=== PATIENT | male | born 1955 | race Caucasian/White ===

== ENCOUNTER → 2017-04-17 | Outpatient (CLI) | payer BC ==
[~2017-04-17] MED LIST: ALPR.5 PO; AMLO10 PO; AMLO5; AMLO5 PO; ASPI81CH PO; Aspir-Trin325 MG PO; CEPH500 PO; CIPDEXSU BOTHEARS; CIPDEXSU RIGHTEAR; CIPR500 PO; CYAN1000; DIAZ5 PO; FISH1000; GABA300 PO; GABA800 PO; GLYB5; GLYB5 PO; HYDACE10A PO; HYDACE10B PO; HYDACE5 PO; HYDCHL12.5; HYDCHL25 PO; IBUP600 PO; IBUP800 PO; ISOSORBIDE MONONITRA PO; LISI20; LISI20 PO; MAGNESIUM-VIT1 EACH PO; METF500; METF500 PO; METO100ER PO; METO50ER PO; NEBI10; OMEP20ER PO; OXYC10ER PO; OXYC10TA19; OXYC1TAB11 PO; OXYC5; OXYC5 PO; PIOG45 PO; POTA20PAC PO; PRAV20 PO; PREG75 PO; PYRI100; Plavix75 MG PO; SENN187 PO; TORSE20 PO; TRESIBA FL200 UNIT/1 SC; WARF7.5 PO; XARELTO20 MG PO; Zofran Odt4 MG SL
[2017-04-19 17:38] LABS: Methadone Metab. by GC/MS Not Detected (NOTDET)
== END ==
LOC: LAB EV 15:00
PROVIDERS: Physician Assistant
DX: G89.4 Chronic pain syndrome (principal)
CPT/HCPCS: G0480

== ENCOUNTER 2019-01-05 09:50 | Day surgery (SDC) | payer BC ==
[~2019-01-05] VITALS: Ht 190.5 cm; Wt 135.0 kg
[~2019-01-05 09:50] MED LIST changes: +AMIT25 PO; +Aspir 8181 MG PO; +CLOP75 PO; +DICMIS50EC PO; +Flonase 0.05% N16 GM; +PANT40 PO
[2019-01-05] MEDS ORDERED: Isosorbide Mono30 MG PO (15:39)
--- NOTE | 2019-01-05 15:45 | NUR ---
Pt given hard script for Ricardo, called into [facility] on [address]. Pt instructed to get labs drawn for kidney's on 01/07 orderin patients home folder. Pt instructed not to take viagra.
--- NOTE | 2019-01-05 15:49 | NUR ---
CAMILLA Luna RN site reviewed.
--- NOTE | 2019-01-05 17:05 | NUR ---
ASSUMED CARE OF PT. PT IS AWAKE, ALERT AND ORIENTED, PLEASENT AND COOPERTIVE. PT DENIES CHEST PAIN/PRESSURE, SOB OR NAUSEA. MONITOR SR 60'S, B/P 147/76, SPO2 95% RA. R RADIAL SITE, SOFT, NO SWELLING/HEMATOMA, TR BAND IN PLACE. PT UP TO BATHROOM WITHOUT PROBLEM, SITE UNCHANGED AFTER ACTIVITY.
--- NOTE | 2019-01-05 18:20 | NUR ---
PT DRESSED SELF WITH MIN ASSISTANCE. PT'S SITE REMAINS UNCHANGED, TR BAND REMOVED, CLOTH DOT AND WRIST IMMOBILIZER PLACED; IV REMOVED-CANNULA INTACT. PT RECEIVED DISCHARGE INSTRUCTIONS, MED LIST AND "AFTER CARE" INSTRUCTIONS; VERBALIZED GOOD UNDERSTANDING.
--- NOTE | 2019-01-05 18:25 | NUR ---
PT LEFT FACILITY WITH BROTHER VIA W/C, CONDITION STABLE.
== END 2019-01-05 18:25 | disposition home or self-care (01) ==
LOC: MHTC 09:50
PROC: 4A023N7 Measurement of Cardiac Sampling and Pressure, Left Heart, Percutaneous Approach (ICD-10-PCS; principal; 2019-01-05)
PROC: B2111ZZ Fluoroscopy of Multiple Coronary Arteries using Low Osmolar Contrast (ICD-10-PCS; principal; 2019-01-05)
DX: R94.39 Abnormal result of other cardiovascular function study (principal); I48.0 Paroxysmal atrial fibrillation; I25.10 Atherosclerotic heart disease of native coronary artery without angina pectoris; E78.5 Hyperlipidemia, unspecified; M54.5 Low back pain; I12.9 Hypertensive chronic kidney disease with stage 1 through stage 4 chronic kidney disease, or unspecified chronic kidney disease; E11.22 Type 2 diabetes mellitus with diabetic chronic kidney disease; N18.9 Chronic kidney disease, unspecified; E66.01 Morbid (severe) obesity due to excess calories; Z68.37 Body mass index [BMI] 37.0-37.9, adult; Z79.84 Long term (current) use of oral hypoglycemic drugs; Z79.82 Long term (current) use of aspirin; Z79.02 Long term (current) use of antithrombotics/antiplatelets; Z79.899 Other long term (current) drug therapy; Z87.891 Personal history of nicotine dependence; Z88.5 Allergy status to narcotic agent; Z95.5 Presence of coronary angioplasty implant and graft
CPT/HCPCS: 93458; 99152; 99153; C1769; C1894; J1644; J2250; J3010; J7030; Q9967

== ENCOUNTER 2020-06-26 15:41 | Emergency (ER) | payer MEDICARE ==
[~2020-06-26] VITALS: Ht 193 cm; Wt 142.9 kg
[~2020-06-26 15:41] MED LIST changes: +Isosorbide Mono30 MG PO
[2020-06-26 16:42] LABS: BASOPHILS ABSOLUTE AUTO 0.05 K/mm3 (0.00-0.23); BASOPHILS PERCENT AUTO 1 % (0-2); EOSINOPHILS ABSOLUTE AUTO 0.18 K/mm3 (0.00-0.68); EOSINOPHILS PERCENT AUTO 2 % (0-6); Hematocrit 42.6 % (37.0-53.0); Hemoglobin 13.4 g/dL (13.5-17.5); IMMATURE GRAN ABSOLUTE AUTO 0.03 K/mm3 (0.00-0.10); IMMATURE GRAN PERCENT AUTO 0 % (0-1); LYMPHOCYTES ABSOLUTE AUTO 1.47 K/mm3 (0.84-5.20); LYMPHOCYTES PERCENT AUTO 18 % (21-46); MONOCYTES ABSOLUTE AUTO 0.64 K/mm3 (0.16-1.47); MONOCYTES PERCENT AUTO 8 % (4-13); Mean Corpuscular HGB 27.2 pg (26.0-34.0); Mean Corpuscular HGB Conc 31.5 g/dL (31.5-36.5); Mean Corpuscular Volume 86 fL (80-100); Mean Platelet Volume 10.3 fL (9.1-12.4); NEUTROPHILS ABSOLUTE AUTO 5.91 K/mm3 (1.96-9.15); NEUTROPHILS PERCENT AUTO 71 % (41-73); Platelet Count 194 K/mm3 (150-400); RDW Coefficient Variation 15.5 % (11.7-14.2); Red Blood Cell Count 4.93 M/mm3 (4.30-5.90); White Blood Cell Count 8.28 K/mm3 (4.00-11.30)
[2020-06-26 17:04] LABS: Alanine Aminotransfer (ALT/SGP 49 U/L (12-78); Albumin, Blood 3.7 g/dL (3.4-5.0); Albumin/Globulin Ratio 0.8 (0.8-1.8); Alk Phos 171 U/L (50-136); Anion Gap 3 mmol/L (6-16); Aspartate Aminotrans (AST/SGOT 31 U/L (12-37); Bilirubin, Total 0.5 mg/dL (0.1-1.0); Blood Urea Nitrogen 22 mg/dL (8-24); Bun/Creatinine Ratio 11.5 (12.0-20.0); CO2, Blood 30 mmol/L (21-32); Calcium, Blood 8.8 mg/dL (8.5-10.1); Chloride, Blood 107 mmol/L (98-108); Creatinine, Blood 1.91 mg/dL (0.60-1.20); Globulin, Blood 4.4 g/dL (2.2-4.0); Glomerular Filtration Rate 38 (60-); Glucose, Blood 113 mg/dL (70-99); Potassium, Blood 4.9 mmol/L (3.5-5.5); Sodium, Blood 140 mmol/L (136-145); Total Protein, Blood 8.1 g/dL (6.4-8.2); Troponin I <0.015 ng/mL (0.000-0.040)
[2020-06-30] MEDS ORDERED: CLOP75 PO (14:52)
[2020-06-30] MEDS ORDERED: NEBI10 PO (14:53)
== END 2020-06-26 17:51 | disposition left against medical advice (07) ==
LOC: ER 15:41
PROVIDERS: Physician Assistant
DX: R68.84 Jaw pain (principal); Z53.21 Procedure and treatment not carried out due to patient leaving prior to being seen by health care provider
CPT/HCPCS: 36415; 71046; 80053; 84484; 85025; 93005; 93010; 99285-25

== ENCOUNTER 2020-07-06 09:52 | Day surgery (SDC) | payer MEDICARE ==
[~2020-07-06] VITALS: Ht 193 cm; Wt 143.0 kg
[~2020-07-06 09:52] MED LIST changes: +NEBI10 PO
[2020-07-06] MEDS ORDERED: CLOP75 PO (10:50)
--- NOTE | 2020-07-06 14:17 | NUR ---
[facility] A&O. TR band in place. good sensation in left fingers. sitting in recovery recliner.
--- NOTE | 2020-07-06 16:30 | NUR ---
LEFT RADIAL SITE SOFT AND NONTENDER. AIR REMOVED FROM TR BAND.
--- NOTE | 2020-07-06 17:00 | NUR ---
patient ambulated to bathroom by self. tolerated well. verbalized understanding of discharge instructions and precautions. TR band removed. site soft and nontender. cloth dot dressing placed to site. wrist board placed. no further questions. transferred to car via wheelchair.
== END 2020-07-06 23:06 | disposition home or self-care (01) ==
LOC: MHTC 09:52 → ORSCMMR 10:02 → MHTC 10:03
DX: I25.118 Atherosclerotic heart disease of native coronary artery with other forms of angina pectoris (principal); E66.01 Morbid (severe) obesity due to excess calories; E78.5 Hyperlipidemia, unspecified; I48.0 Paroxysmal atrial fibrillation; E11.22 Type 2 diabetes mellitus with diabetic chronic kidney disease; I13.10 Hypertensive heart and chronic kidney disease without heart failure, with stage 1 through stage 4 chronic kidney disease, or unspecified chronic kidney disease; N18.9 Chronic kidney disease, unspecified; Z95.1 Presence of aortocoronary bypass graft
CPT/HCPCS: 76937; 85347; 93459; 93571; 99152; 99153; C1769; C1887; C1894; J1644; J2250; J3010; J7030; J7050; Q9967

== ENCOUNTER 2021-02-15 11:45 | Day surgery (SDC) | payer MEDICARE ==
[~2021-02-15] VITALS: Ht 193 cm; Wt 135.1 kg
--- NOTE | 2021-02-15 12:33 | NUR ---
02/15/21 1233 Pat Prince FIRST ATTEMPT MISSED BY GRACIELA IN THE RW.SECOND ATTTEMPT SUCCESSFUL IN [facility] RN
== END 2021-02-15 13:43 | disposition home or self-care (01) ==
LOC: ORSCSDS 11:45
PROVIDERS: Student in an Organized Health Care Education/Training Program
PROC: 0DB58ZX Excision of Esophagus, Via Natural or Artificial Opening Endoscopic, Diagnostic (ICD-10-PCS; principal; 2021-02-15 12:45)
PROC: 0D758ZZ Dilation of Esophagus, Via Natural or Artificial Opening Endoscopic (ICD-10-PCS; principal; 2021-02-15 12:45)
PROC: 0DB48ZX Excision of Esophagogastric Junction, Via Natural or Artificial Opening Endoscopic, Diagnostic (ICD-10-PCS; principal; 2021-02-15 12:45)
DX: R13.10 Dysphagia, unspecified (principal); K22.70 Barrett's esophagus without dysplasia; K21.9 Gastro-esophageal reflux disease without esophagitis; I25.10 Atherosclerotic heart disease of native coronary artery without angina pectoris; I48.91 Unspecified atrial fibrillation; Z79.01 Long term (current) use of anticoagulants; I10 Essential (primary) hypertension; E11.9 Type 2 diabetes mellitus without complications; G47.33 Obstructive sleep apnea (adult) (pediatric); Z79.899 Other long term (current) drug therapy
CPT/HCPCS: 82947; J2001; J2250; J2704; J7120

== ENCOUNTER → 2022-03-21 | Outpatient (CLI) | payer MEDICARE ==
[~2022-03-21] MED LIST changes: +ATEN50 PO; +DIAZEPAM5 M2 PO; +LIPITOR80 MG PO; +TAMSULOSIN HCL0.4 M1 PO; +TRESIBA FL100 UNIT/2 SQ
[2022-03-21 18:10] LABS: Creatinine, Urine Random 53.1 mg/dL (27.00-270.00); Microalb/Creat Ratio UR, Rand 15.48 mg/g (0.000-30.000); Microalbumin, Random Urine 8.22 mg/L (0.000-20.000)
== END | disposition home or self-care (01) ==
LOC: LAB SHORT 12:00 → LAB 12:00 → LAB SHORT 13:25
PROVIDERS: Family Medicine
DX: E11.69 Type 2 diabetes mellitus with other specified complication (principal); E11.22 Type 2 diabetes mellitus with diabetic chronic kidney disease
CPT/HCPCS: 82043; 82570

== ENCOUNTER 2022-05-02 11:37 | Day surgery (SDC) | payer MEDICARE ==
[~2022-05-02] VITALS: Ht 193 cm; Wt 135.1 kg
[~2022-05-02 11:37] MED LIST changes: +DICL75ER PO; +OMEP20ER; +TRULICITY1.5 MG/0.1 SQ
--- NOTE | 2022-05-02 12:46 | NUR ---
05/02/22 1246 Eneida Breen AT 1242 PLEDGET AT 1243
--- NOTE | 2022-05-02 14:18 | NUR ---
05/02/22 1418 Scar العراقي PT INSTRUCTED TO MONITOR BLOOD PRESSURE AT HOME AND FOLLOW UP WITH PCP REGARDING HYPERTENSION.
== END 2022-05-02 14:07 | disposition home or self-care (01) ==
LOC: ORSCSDS 11:37
PROVIDERS: Ophthalmology
PROC: 08DK3ZZ Extraction of Left Lens, Percutaneous Approach (ICD-10-PCS; principal; 2022-05-02 13:00)
DX: E11.36 Type 2 diabetes mellitus with diabetic cataract (principal); H25.12 Age-related nuclear cataract, left eye; Z96.1 Presence of intraocular lens; I12.9 Hypertensive chronic kidney disease with stage 1 through stage 4 chronic kidney disease, or unspecified chronic kidney disease; E11.22 Type 2 diabetes mellitus with diabetic chronic kidney disease; G47.33 Obstructive sleep apnea (adult) (pediatric); I25.10 Atherosclerotic heart disease of native coronary artery without angina pectoris; N18.9 Chronic kidney disease, unspecified; Z95.1 Presence of aortocoronary bypass graft; Z87.891 Personal history of nicotine dependence; Z79.82 Long term (current) use of aspirin; Z79.01 Long term (current) use of anticoagulants; Z79.899 Other long term (current) drug therapy
CPT/HCPCS: 82947; J2001; J2250; J3010; J3301; J7040; V2632

== ENCOUNTER → 2022-11-18 | Outpatient (CLI) | payer MEDICARE ==
[2022-11-18 18:56] LABS: White Blood Cells Urine 0-2 /hpf (0-5)
[2022-11-18 20:01] LABS: Eosinophils-Raw #,Urine 0
[2022-11-18 20:40] LABS: Protein, Urine Quantitative 14.1 mg/dL (0.0-11.9)
[2022-11-18 20:58] LABS: Microalbumin, Urine Quant. <5.000 mg/L (0.000-20.000)
[2022-11-21 13:11] LABS: M-SPIKE, % Comment: % (Not Observed); PROTEIN,TOTAL,URINE 10.8 mg/dL (Not Estab.)
== END | disposition home or self-care (01) ==
LOC: LAB 11-17 08:00 → LAB SHORT 11-17 08:00 → LAB 08:00
PROVIDERS: Internal Medicine Nephrology
DX: N18.30 Chronic kidney disease, stage 3 unspecified (principal); N25.81 Secondary hyperparathyroidism of renal origin; E55.9 Vitamin D deficiency, unspecified; E78.00 Pure hypercholesterolemia, unspecified; G60.9 Hereditary and idiopathic neuropathy, unspecified; D51.8 Other vitamin B12 deficiency anemias; D52.8 Other folate deficiency anemias; D50.9 Iron deficiency anemia, unspecified; R76.9 Abnormal immunological finding in serum, unspecified; R94.5 Abnormal results of liver function studies; R94.6 Abnormal results of thyroid function studies
CPT/HCPCS: 81050; 82043; 84156; 84166; 87205

== ENCOUNTER 2024-06-11 12:04 | Day surgery (SDC) | payer MEDICARE ==
[~2024-06-11] VITALS: Ht 193 cm; Wt 129.6 kg
[~2024-06-11 12:04] MED LIST changes: +JARDIANCE10 MG PO; +Lactated Ringer's 1,000 ML IV ONE; -OMEP20ER; -TRESIBA FL200 UNIT/1 SC; +TRESIBA FL200 UNIT/2 SC
[2024-06-11] MEDS ORDERED: propofoL 50 ML IV ONE (12:14)
[2024-06-11] MEDS ORDERED: AMIT25 (12:25)
[2024-06-11] MEDS ORDERED: ASPI81CH PO (12:25)
[2024-06-11] MEDS ORDERED: FLUDROCORTISON0.1 M1 PO (12:26)
[2024-06-11] MEDS ORDERED: HUMALOG KW100 UNIT/1 (12:26)
[2024-06-11] MEDS ORDERED: MIDO5 PO (12:27)
[2024-06-11] MEDS ORDERED: Lactated Ringer's 1,000 ML IV ONE (12:58)
[2024-06-11] MEDS ORDERED: propofoL 20 ML IV ONE (12:59)
[2024-06-11] MEDS ORDERED: Benzocaine Oral Spray 0.5ML UD ONE (12:59)
[2024-06-11] MEDS ORDERED: Phenylephrine HCl 100 MCG/ML-NS 10MLSYR (1MG/10ML) ONE (13:03)
[2024-06-11 14:58] VITALS: BP 151/94
== END 2024-06-11 14:48 | disposition home or self-care (01) ==
LOC: ORSCSDS 12:04
PROVIDERS: Specialist
PROC: 0D758ZZ Dilation of Esophagus, Via Natural or Artificial Opening Endoscopic (ICD-10-PCS; principal; 2024-06-11 13:45)
PROC: 0DB58ZX Excision of Esophagus, Via Natural or Artificial Opening Endoscopic, Diagnostic (ICD-10-PCS; principal; 2024-06-11 13:45)
PROC: 0DBK8ZX Excision of Ascending Colon, Via Natural or Artificial Opening Endoscopic, Diagnostic (ICD-10-PCS; principal; 2024-06-11 13:45)
PROC: 0D878ZZ Division of Stomach, Pylorus, Via Natural or Artificial Opening Endoscopic (ICD-10-PCS; principal; 2024-06-11 13:45)
PROC: 0DB68ZX Excision of Stomach, Via Natural or Artificial Opening Endoscopic, Diagnostic (ICD-10-PCS; principal; 2024-06-11 13:45)
PROC: 0DBM8ZX Excision of Descending Colon, Via Natural or Artificial Opening Endoscopic, Diagnostic (ICD-10-PCS; principal; 2024-06-11 13:45)
DX: K22.70 Barrett's esophagus without dysplasia (principal); Z12.11 Encounter for screening for malignant neoplasm of colon; Z86.0102 Personal history of hyperplastic colon polyps; R13.10 Dysphagia, unspecified; D12.2 Benign neoplasm of ascending colon; D12.4 Benign neoplasm of descending colon; K21.9 Gastro-esophageal reflux disease without esophagitis; K31.7 Polyp of stomach and duodenum; K64.4 Residual hemorrhoidal skin tags; E11.22 Type 2 diabetes mellitus with diabetic chronic kidney disease; I12.9 Hypertensive chronic kidney disease with stage 1 through stage 4 chronic kidney disease, or unspecified chronic kidney disease; N18.9 Chronic kidney disease, unspecified; Z95.1 Presence of aortocoronary bypass graft; I25.10 Atherosclerotic heart disease of native coronary artery without angina pectoris; I48.91 Unspecified atrial fibrillation; E78.5 Hyperlipidemia, unspecified; G47.33 Obstructive sleep apnea (adult) (pediatric); Z87.891 Personal history of nicotine dependence; E66.9 Obesity, unspecified; Z68.34 Body mass index [BMI] 34.0-34.9, adult; Z79.01 Long term (current) use of anticoagulants; Z79.82 Long term (current) use of aspirin; Z79.4 Long term (current) use of insulin; Z79.899 Other long term (current) drug therapy
CPT/HCPCS: 82947; 88305; 88341; 88342; A9270; C1769; J2371; J2704; J7120